=== PATIENT | male | born 1990 | race Caucasian/White ===

== ENCOUNTER 2018-11-11 23:01 | Emergency (ER) | payer SELFPAY ==
[2018-11-11] MEDS ORDERED: Ketorolac 60 MG/2 ML SDV IM ONE (23:16)
--- NOTE | 2018-11-11 23:20 | EDM.PDOC ---
ED HPI GENERAL MEDICAL PROBLEM - General Chief Complaint: Upper Extremity Injury/Pain Stated Complaint: LT ELBOW HURTS Time Seen by Provider: 11/11/18 23:15 - History of Present Illness INITIAL COMMENTS - FREE TEXT/NARRATIVE: HISTORY AND PHYSICAL: History of present illness: The patient is a healthy 28-year-old male who presents from work at his employer 's request for evaluation of pain in his left upper extremity muscle area has been ongoing for 2 days. The patient just started at this job and says he does a movement that involves him to utilize his left upper extremity and away he is not used to doing any complaints of pain where the biceps muscle goes into the elbow as well as to the triceps area. He has no direct trauma to the area and no bony pain and no neurosensory changes or weakness in the arm. He is right- hand dominant. He has no systemic complaints. Review of systems: As per history of present illness and below otherwise all systems reviewed and negative. Past medical history: As per history of present illness and as reviewed below otherwise noncontributory. Surgical history: As per history of present illness and as reviewed below otherwise noncontributory. Social history: No reported history of drug or alcohol abuse. Family history: As per history of present illness and as reviewed below otherwise noncontributory. Physical exam: Patient is alert and oriented and nontoxic and moves easily in the ED and vital signs were noted by me HEENT: Atraumatic, normocephalic, , negative for conjunctival pallor or scleral icterus, mucous membranes moist, throat clear, neck supple, nontender, trachea midline. Lungs: Clear to auscultation, breath sounds equal bilaterally, chest nontender. Heart: S1S2, regular rate and rhythm no overt murmurs Abdomen: Soft, nondistended, nontender. NABS Pelvis: Deferred Genitourinary: Deferred. Rectal: Deferred. Extremities: Atraumatic, negative for cords or calf pain. Neurovascular unremarkable. the patient has full range of motion of all extremities including the left upper extremity. There are no palpable bony deformities at the clavicle humerus elbow forearm wrist or hand and the patient has good strength in the left upper extremity. There is no compartment swelling and the patient has no redness ecchymosis or erythema of the soft tissues. There is reproducible tenderness at palpation of the medial head of the biceps muscle where it tapers down to the elbow as well as at the triceps insertion posteriorly. Neuro: Awake, alert, oriented. Cranial nerves II through XII unremarkable. Cerebellum unremarkable. Motor and sensory unremarkable throughout. Exam nonfocal. Diagnostics: [] Therapeutics: Toradol Impression: Musculoskeletal left upper extremity pain Definitive disposition and diagnosis as appropriate pending reevaluation and review of above. Left Upper Arm Pain Score (Numeric/FACES): 2 - Related Data Allergies Allergy/AdvReac Type Severity Reaction Status Date / Time No Known Allergies Allergy Verified 11/11/18 23:14 Home Meds: Home Meds . [No Known Home Meds] 11/11/18 [History] Review of Systems - Review of Systems Review Of Systems: ROS reveals no pertinent complaints other than HPI. ED EXAM, GENERAL - Physical Exam Exam: See Below (See dictation) Course - Vital Signs Last Recorded V/S: Last Vital Signs Temp 37.0 C 11/11/18 23:10 Pulse 82 11/11/18 23:10 Resp BP 139/71 11/11/18 23:10 Pulse Ox 97 11/11/18 23:10 - Orders/Labs/Meds Orders: Active Orders 24 hr Category Date Time Status Ketorolac [Toradol] Med 11/11/18 23:16 Once 60 mg IM ONETIME ONE Departure - Departure Time of Disposition: 23:19 Disposition: Home, Self-Care 01 Condition: Good Clinical Impression: Musculoskeletal pain of upper extremity Qualifiers: Laterality: left Qualified Code(s): M79.602 - Pain in left arm - Discharge Information Referrals: PCP,None [Primary Care Provider] - Additional Instructions: The following information is given to patients seen in the emergency department who are being discharged to home. This information is to outline your options for follow-up care. We provide all patients seen in our emergency department with a follow-up referral. The need for follow-up, as well as the timing and circumstances, are variable depending upon the specifics of your emergency department visit. If you don't have a primary care physician on staff, we will provide you with a referral. We always advise you to contact your personal physician following an emergency department visit to inform them of the circumstance of the visit and for follow-up with them and/or the need for any referrals to a consulting specialist. The emergency department will also refer you to a specialist when appropriate. This referral assures that you have the opportunity for followup care with a specialist. All of these measure are taken in an effort to provide you with optimal care, which includes your followup. Under all circumstances we always encourage you to contact your private physician who remains a resource for coordinating your care. When calling for followup care, please make the office aware that this follow-up is from your recent emergency room visit. If for any reason you are refused follow-up, please contact the [facility] emergency department at and ask to speak to the emergency department charge nurse. [facility] Primary [facility]- [place] [address] Use [id number] ibuprofen/Motrin or Aleve for pain as we discussed. Place ice onto the areas of discomfort after work and activities and stretch the area prior to doing her work exercise. On schedule follow-up appointment in the clinic using resources given to above and return to ER as needed and as discussed - My Orders Last 24 Hours: My Active Orders 11/11/18 23:16 Ketorolac [Toradol] 60 mg IM ONETIME ONE - Assessment/Plan Last 24 Hours: My Active Orders 11/11/18 23:16 Ketorolac [Toradol] 60 mg IM ONETIME ONE
== END 2018-11-11 23:45 | disposition home or self-care (01) ==
LOC: MW.ED 23:01
DX: M79.622 Pain in left upper arm (principal)
CPT/HCPCS: 96372; 99283; J1885; 99282

== ENCOUNTER 2019-03-06 12:56 | Emergency (ER) | payer OTHER ==
[2019-03-06] MEDS ORDERED: Tetracaine HCl/PF 0.5% 4 ML Bottle EYEBOTH ONE (13:14)
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
== END 2019-03-06 13:59 | disposition home or self-care (01) ==
LOC: MW.ED 12:56
DX: S05.01XA Injury of conjunctiva and corneal abrasion without foreign body, right eye, initial encounter (principal); S05.02XA Injury of conjunctiva and corneal abrasion without foreign body, left eye, initial encounter; F17.210 Nicotine dependence, cigarettes, uncomplicated; X08.8XXA Exposure to other specified smoke, fire and flames, initial encounter
CPT/HCPCS: 99283

== ENCOUNTER 2020-12-01 09:16 | Emergency (ER) | payer BC, OTHER ==
--- NOTE | 2020-12-01 09:29 | EDM.PDOC ---
ED HPI GENERAL MEDICAL PROBLEM - General Chief Complaint: Upper Extremity Injury/Pain Stated Complaint: possibly broke LFT THUMB Time Seen by Provider: 12/01/20 09:28 - History of Present Illness INITIAL COMMENTS - FREE TEXT/NARRATIVE: History of present illness: [] Patient hit his left thumb with a hammer 4 or 5 days ago. 2 days ago because of dark discoloration and pain in the thumb he tripped in the nail with a drill bit he had sterilized with alcohol only. Since then he has increased swelling pain and he has no systemic signs of infection. He has no history of heart murmur. He is not diabetic. Review of systems: As per history of present illness and below otherwise all systems reviewed and negative. Past medical history: As per history of present illness and as reviewed below otherwise noncontributory. Surgical history: As per history of present illness and as reviewed below otherwise noncontributory. Social history: Does smoke. No reported history of drug or alcohol abuse. Family history: As per history of present illness and as reviewed below otherwise noncontributory. Physical exam: Constitutional - well developed, well-nourished and in no acute distress HEENT - normocephalic, no evidence of trauma - external nose and mouth normal - no mass in neck and no JVD - mucosae moist EYES - full EOM, PERRL, no icterus - no evidence of inflammation, injection, or drainage Respiratory - no respiratory distress, equal bilateral expansion Cardiovascular - Regular Rhythm with S1 and S2 appreciated and no murmur, gallop or rub. Musculoskeletal left thumb has a ungual hematoma. There is small area of erythema swelling and tenderness around the paronychia S entire base of the nail. There is a small puncture wound in the nail itself. Buys no gross deformity of long bones or joints - no tenderness, swelling or edema Neurologic - Alert and oriented times four - CN II-XII grossly intact - motor sensory and coordination symmetrically normal Psychiatric - appropriate mood and affect with normal thought content Hematologic - No petechiae or purpura - mucosa appropriate color and sclera not pale - normal nail bed color and refill Integument -see above under musculoskeletal otherwise no rash or evidence of trauma - normal turgor Diagnostics: [] Therapeutics: [] Impression: [] Plan: [] Definitive disposition and diagnosis as appropriate pending reevaluation and review of above. Left Finger-Thumb Pain Score (Numeric/FACES): 2 - Related Data Allergies Allergy/AdvReac Type Severity Reaction Status Date / Time No Known Allergies Allergy Verified 12/01/20 09:37 Home Meds: Home Meds Acetaminophen/HYDROcodone [[place] 325-10 MG] 1 tab PO Q4H PRN #14 tablet 12/01/20 [Rx] cephALEXin [Cephalexin] 500 mg PO BID #20 capsule 12/01/20 [Rx] Past Medical History - Past Health History Medical/Surgical History: Denies Medical/Surgical History Psychiatric History: Reports: None - Infectious Disease History Infectious Disease History: Reports: None Social & Family History - Family History Family Medical History: No Pertinent Family History - Caffeine Use Caffeine Use: Reports: Coffee, Energy Drinks Review of Systems - Review of Systems Review Of Systems: Comprehensive ROS is negative, except as noted in HPI. ED EXAM, GENERAL - Physical Exam Exam: See Below Free Text/Narrative:: My physical exam is in the [facility] ED TRAUMA EXTREMITY PROCEDURES - I&D Site: Left thumb Skin Prep: Chlorhexidine (Hibiciens) Local Anesthesia: Lidocaine: 1% Plain Local Anesthetic Volume: Other (10 cc) Area Incised With: 11 Blade Drainage: Purulent, Small Amount Probed to Break Up Loculations: Yes Packed With: None Progress/Comments: Patient had a sterile technique digital block 1% lidocaine administered in the base of the left thumb. After anesthetic was adequate the paronychia was elevated above the nail. All amount of purulent discharge obtained. Patient tolerated the procedure well. Course - Vital Signs Text/Narrative:: My interpretation of the x-ray - it demonstrates a minimally displaced fracture across the tip of the first digit. The patient has taken a tuft fracture and by using a partially sterilized or clean drill bit opened it to become an open fracture. There is also a small paronychia. I discussed the case with Hernandez Dugan the hand doctor on-call and Delphine. He agreed with the plan to give him intravenous cefazolin and osman courtney the paronychia him. Then he will follow next week. The patient will go home on antibiotics after tetanus prophylaxis administered. After the splint was applied the fingertip is looking good by coloration. The sensation check is not valid because the patient has had a digital block. Last Recorded V/S: Last Vital Signs Temp 36.2 C 12/01/20 09:37 Pulse 81 12/01/20 09:37 Resp 20 12/01/20 09:37 BP 119/79 12/01/20 09:37 Pulse Ox 97 12/01/20 09:37 - Orders/Labs/Meds Orders: Active Orders 24 hr Category Date Time Status Vaccines to be Administered [RC] PER UNIT ROUTINE Care 12/01/20 09:43 Active Sodium Chloride 0.9% [Saline Flush] Med 12/01/20 10:06 Active 10 ml FLUSH ASDIRECTED PRN Sodium Chloride 0.9% [Saline Flush] Med 12/01/20 10:06 Active 2.5 ml FLUSH ASDIRECTED PRN Saline Lock Insert [OM.PC] Stat Oth 12/01/20 10:06 Ordered Medication Orders Sodium Chloride (Sodium Chloride 0.9% 10 Ml Syringe) 10 ml FLUSH ASDIRECTED PRN PRN Reason: Keep Vein Open Last Admin: 12/01/20 10:16 Dose: 10 ml Documented by: WU Sodium Chloride (Sodium Chloride 0.9% 2.5 Ml Syringe) 2.5 ml FLUSH ASDIRECTED PRN PRN Reason: Keep Vein Open Last Admin: 12/01/20 10:16 Dose: 2.5 ml Documented by: WU Meds: Medications Generic Name Dose Route Start Last Admin Trade Name Freq PRN Reason Stop Dose Admin Sodium Chloride 10 ml 12/01/20 10:06 12/01/20 10:16 Sodium Chloride 0.9% 10 Ml Syringe FLUSH 10 ml ASDIRECTED PRN Administration Keep Vein Open Sodium Chloride 2.5 ml 12/01/20 10:06 12/01/20 10:16 Sodium Chloride 0.9% 2.5 Ml Syringe FLUSH 2.5 ml ASDIRECTED PRN Administration Keep Vein Open Discontinued Medications Generic Name Dose Route Start Last Admin Trade Name Freq PRN Reason Stop Dose Admin Diphtheria/Tetanus/Acell Pertussis 0.5 ml 12/01/20 09:43 12/01/20 09:54 Diphtheria,Pertussis(Acell),Tetanus Vaccine 0.5 Ml Syringe IM 12/01/20 09:44 0.5 ml .ONCE ONE Administration Diphtheria/Tetanus/Acell Pertussis Confirm 12/01/20 09:51 12/01/20 09:57 Diphtheria,Pertussis(Acell),Tetanus Vaccine 0.5 Ml Syringe Administered 12/01/20 09:52 Not Given Dose 0.5 ml .ROUTE .STK-MED ONE Ceftriaxone Sodium/Dextrose 2 50 mls @ 100 mls/hr 12/01/20 10:06 12/01/20 10:10 gm/ Premix IV 12/01/20 10:35 Not Given ONETIME ONE Cefazolin Sodium/Dextrose 1 gm 50 mls @ 100 mls/hr 12/01/20 10:09 12/01/20 10:16 / Premix IV 12/01/20 10:38 100 mls/hr ONETIME ONE Administration Lidocaine HCl 10 ml 12/01/20 10:22 12/01/20 10:35 Lidocaine 1% 10 Ml Mdv INJECT 12/01/20 10:23 Not Given ONETIME ONE Lidocaine HCl Confirm 12/01/20 10:27 12/01/20 10:34 Lidocaine 1% 5 Ml Sdv Administered 12/01/20 10:28 Not Given Dose 10 ml .ROUTE .STK-MED ONE Lidocaine HCl 10 ml 12/01/20 10:35 12/01/20 10:36 Lidocaine 1% 5 Ml Sdv INJECT 12/01/20 10:36 10 ml ONETIME ONE Administration Departure - Departure Time of Disposition: 11:25 Disposition: Home, Self-Care 01 Condition: Good Clinical Impression: Open fracture of tuft of distal phalanx of finger, Paronychia - Discharge Information Prescriptions: cephALEXin [Cephalexin] 500 mg PO BID #20 capsule Instructions: Finger Fracture, Adult, [id number], Paronychia, [id number] Referrals: PCP,None [Primary Care Provider] - Forms: ED Department Discharge Additional Instructions: When the packing falls out then get what they call an orange stick or some sort of manicure tool that you can push the cuticle back and expose the bone on your thumb and try to keep that area open. It is okay to do that on all your fingers so you never get into this problem again. If you have possible fracture anywhere especially in the tip of your fingers do not do anything to open the skin if it is not already cut. This converted to a more dangerous situation. Hand doctors want to see you in follow up. Hernandez Dugan [phone] [address] [place] [address] [address] The following information is given to patients seen in the emergency department who are being discharged to home. This information is to outline your options for follow-up care. We provide all patients seen in our emergency department with a follow-up referral. The need for follow-up, as well as the timing and circumstances, are variable depending upon the specifics of your emergency department visit. If you don't have a primary care physician on staff, we will provide you with a referral. We always advise you to contact your personal physician following an emergency department visit to inform them of the circumstance of the visit and for follow-up with them and/or the need for any referrals to a consulting specialist. The emergency department will also refer you to a specialist when appropriate. This referral assures that you have the opportunity for follow-up care with a specialist. All of these measure are taken in an effort to provide you with optimal care, which includes your follow-up. Under all circumstances we always encourage you to contact your private physician who remains a resource for coordinating your care. When calling for follow-up care, please make the office aware that this follow-up is from your recent emergency room visit. If for any reason you are refused follow-up, please contact the [facility] Emergency Department at and asked to speak to the emergency department charge nurse. Sepsis Event Note (ED) - Focused Exam Vital Signs: Vital Signs Temp Pulse Resp BP Pulse Ox 12/01/20 09:37 36.2 C 81 20 119/79 97 - My Orders Last 24 Hours: My Active Orders 12/01/20 09:43 Vaccines to be Administered [RC] PER UNIT ROUTINE 12/01/20 10:06 Sodium Chloride 0.9% [Saline Flush] 10 ml FLUSH ASDIRECTED PRN Sodium Chloride 0.9% [Saline Flush] 2.5 ml FLUSH ASDIRECTED PRN Saline Lock Insert [OM.PC] Stat - Assessment/Plan Last 24 Hours: My Active Orders 12/01/20 09:43 Vaccines to be Administered [RC] PER UNIT ROUTINE 12/01/20 10:06 Sodium Chloride 0.9% [Saline Flush] 10 ml FLUSH ASDIRECTED PRN Sodium Chloride 0.9% [Saline Flush] 2.5 ml FLUSH ASDIRECTED PRN Saline Lock Insert [OM.PC] Stat
[2020-12-01] MEDS ORDERED: Diphtheria,Pertussis(Acell),Tetanus Vaccine 0.5 ML Syringe IM ONE (09:43)
[2020-12-01] MEDS ORDERED: Diphtheria,Pertussis(Acell),Tetanus Vaccine 0.5 ML Syringe ONE (09:51)
[2020-12-01] MEDS ORDERED: Sodium Chloride 0.9% 2.5 ML Syringe FLUSH PRN (10:06)
[2020-12-01] MEDS ORDERED: Sodium Chloride 0.9% 10 ML Syringe FLUSH PRN (10:06)
[2020-12-01] MEDS ORDERED: cefTRIAXone 2 GM in Premix Bag 1 BAG IV ONE (10:06)
[2020-12-01] MEDS ORDERED: ceFAZolin 1 GM in Premix Bag 1 BAG IV ONE (10:09)
--- NOTE | 2020-12-01 10:19 | CR ---
HISTORY: Left thumb injury. TECHNIQUE: Two views of the left hand. COMPARISON: No prior. FINDINGS: There is an acute minimally displaced fracture of the distal tuft of the distal phalanx of the left thumb. The osseous structures are otherwise intact. Joint spaces are maintained. No radiopaque foreign body. IMPRESSION: 1. Acute minimally displaced fracture of the distal tuft of the distal phalanx of the left thumb. 2. No radiopaque foreign body. Dictated by Eloy Collins MD @ Dec 01 2020 10:16AM Signed by Dr. Eloy Collins @ Dec 01 2020 10:18AM
[2020-12-01] MEDS ORDERED: Lidocaine 1% 10 ML MDV INJECT ONE (10:22)
== END 2020-12-01 11:56 | disposition home or self-care (01) ==
LOC: MW.ED 09:16
DX: S62.522B Displaced fracture of distal phalanx of left thumb, initial encounter for open fracture (principal); L03.012 Cellulitis of left finger; Z23 Encounter for immunization; W22.8XXA Striking against or struck by other objects, initial encounter
CPT/HCPCS: 10060; 73120; 90471; 90715; 96365; 99283; J0690

== ENCOUNTER 2022-08-02 15:50 | Emergency (ER) | payer BC | END 2022-08-02 17:24 | disposition home or self-care (01) | LOC: MW.ED 15:50 | DX: S61.215A Laceration without foreign body of left ring finger without damage to nail, initial encounter (principal); W26.0XXA Contact with knife, initial encounter | CPT/HCPCS: 12001; 99282 ==

== ENCOUNTER 2024-06-26 12:07 | Emergency (ER) | payer BC ==
[2024-06-26] MEDS: Lidocaine 1% 5 ML VIAL INJECT ONE (13:45)
[2024-06-26] MEDS: Acetaminophen/oxyCODONE 325-5 MG Tab PO ONE (13:45)
== END 2024-06-26 14:47 | disposition home or self-care (01) ==
LOC: MW.ED 12:07
DX: K64.5 Perianal venous thrombosis (principal); Z75.8 Other problems related to medical facilities and other health care
CPT/HCPCS: 46320; 99283; A9270; J3490

== ENCOUNTER 2024-07-15 11:29 | Day surgery (SDC) | payer BC ==
[~2024-07-15 11:29] MED LIST: Acetaminophen 1,000 MG in Premix Bag 1 BAG IV SCH; Albuterol 0.083% 2.5 MG/3 ML Neb Soln NEB PRN; HYDROmorphone 1 MG/ML Syringe IVPUSH PRN; Metoclopramide 10 MG/2 ML SDV IVPUSH PRN; Morphine 2 MG/ML SYRINGE IVPUSH PRN; Naloxone 0.4 MG/ML SDV IVPUSH PRN; Ondansetron 4 MG/2 ML SDV IVPUSH PRN; Phenylephrine HCl In 0.9% NaCl 1 MG/10 ML Syringe IVPUSH PRN; ceFAZolin 2 GM in Sodium Chloride 0.9% 50 ML IV ONE; fentaNYL 50 MCG/ML SDV IVPUSH PRN
[2024-07-15] MEDS ORDERED: Bupivacaine 0.5% 10 ML SDV ONE (11:36)
[2024-07-15] MEDS ORDERED: Lidocaine 1% with EPINEPHrine 1:100,000 10 ML MDV ONE (11:36)
[2024-07-15] MEDS: Lactated Ringers 1,000 ML IV SCH (11:54)
[2024-07-15] MEDS ORDERED: fentaNYL 100 MCG/2 ML SDV ONE (11:54)
[2024-07-15] MEDS ORDERED: Midazolam 1 MG/ML 2 ML SDV ONE (11:54)
[2024-07-15] MEDS: Pregabalin 75 MG Cap PO SCH (11:55)
[2024-07-15] MEDS ORDERED: Ketamine HCL/NACL, ISO-OSM 50 MG/5 ML Syringe ONE (13:02)
[2024-07-15] MEDS ORDERED: ceFAZolin 2 GM Vial ONE (13:08)
[2024-07-15] MEDS ORDERED: Lidocaine 2% 11 ML Jelly Filled Syringe ONE ×2 (13:13)
== END 2024-07-15 14:40 | disposition home or self-care (01) ==
LOC: MW.SDS 11:29
PROVIDERS: ATTEND Surgery
DX: K64.5 Perianal venous thrombosis (principal); K64.4 Residual hemorrhoidal skin tags
CPT/HCPCS: 46320; A9270; J0665; J0690; J2250; J3010; J7120; 00902; J3490

== ENCOUNTER 2025-06-28 08:13 | Emergency (ER) | payer BC ==
[2025-06-28 10:01] LABS: BASOPHILS ABSOLUTE AUTO 0.02 K/uL (0.00-0.20); BASOPHILS PERCENT AUTO 0.3 % (0.0-1.0); EOSINOPHILS ABSOLUTE AUTO 0.08 K/uL (0.00-0.45); EOSINOPHILS PERCENT AUTO 1.0 % (0.0-6.0); IMMATURE GRAN ABSOLUTE AUTO 0.03 K/uL (0.00-0.05); IMMATURE GRAN PERCENT AUTO 0.4 % (0.0-0.4); LYMPHOCYTES ABSOLUTE AUTO 0.84 K/uL (1.00-4.80); LYMPHOCYTES PERCENT AUTO 10.6 % (24.0-44.0); MEAN PLATELET VOLUME 10.2 fL (9.4-12.4); MONOCYTES ABSOLUTE AUTO 0.80 K/uL (0.00-0.80); MONOCYTES PERCENT AUTO 10.1 % (0.0-8.0); NEUTROPHILS ABSOLUTE AUTO 6.15 K/uL (1.80-7.70); NEUTROPHILS PERCENT AUTO 77.6 % (41.0-71.0); NRBC ABSOLUTE 0.00 K/uL (0.00-0.02); NRBC PERCENT 0.0 /100WBC (0.0-0.2); PLATELET COUNT,PLT 195 K/uL (150-400); RED BLOOD CELL COUNT 5.05 M/uL (4.52-5.90); WHITE BLOOD CELL COUNT,WBC 7.92 K/uL (3.9-11.3)
[2025-06-28 10:29] LABS: A/G RATIO 0.9 (0.9-1.6); ALANINE AMINOTRANSFERASE,ALT 39.0 IU/L (14-63); ASPARTATE AMNIOTRANSFERASE,AST 27.0 IU/L (15-37); BILIRUBIN TOTAL 0.7 mg/dL (0.2-1.0); BLOOD UREA NITROGEN,BUN 15.0 mg/dL (7.0-18.0); CARBON DIOXIDE,CO2 32.1 mmol/L (21.0-32.0); CHLORIDE,CL 98.0 mmol/L (98-107); CREATININE 1.0 mg/dL (0.8-1.3); EST CRCL DRUG DOSING (CG) 110.86 mL/min; GLUCOSE RANDOM 133.0 mg/dL (74-106); POTASSIUM,K 4.4 mmol/L (3.5-5.1); PROTEIN TOTAL,TP 7.6 g/dL (6.4-8.2); SODIUM,NA 136.0 mmol/L (136-148)
[2025-06-28 10:32] LABS: ESTIMATED GFR 101.0 mL/min (>60)
[2025-06-28] MEDS: Amoxicillin/Clavulanate K 875-125 MG Tab PO ONE (10:49)
== END 2025-06-28 11:42 | disposition home or self-care (01) ==
LOC: MW.ED 08:13
DX: J18.9 Pneumonia, unspecified organism (principal)
CPT/HCPCS: 36415; 71046; 80053; 85025; 87428; 99285; A9270; J7620; 99284